=== PATIENT | male | born 1960 | race Two or more races ===

== ENCOUNTER 2020-02-25 11:04 | Emergency (ER) | payer MEDICAID ==
[~2020-02-25] VITALS: Ht 165.1 cm; Wt 66.0 kg
[2020-02-25] MEDS ORDERED: ASPIRIN 325MG EC TABLET PO ONE (13:30)
[2020-02-25 14:03] LABS: BASOPHILS % 0.6 % (0.0-2.0); HEMATOCRIT. 44.7 % (42.0-52.0); LYMPHOCYTES % 44.9 % (20.0-50.0); MEAN CORPUSCULAR HEMOGLOBIN 28.6 pg (28.0-32.0); MEAN CORPUSCULAR VOLUME 85.1 fL (80.0-94.0); MEAN PLATELET VOLUME 7.7 fl (7.4-10.4); MONOCYTES % 10.5 % (2.0-8.0); PLATELET 218 x1000/uL (130-400); RED BLOOD CELL COUNT 5.25 mill/uL (4.7-6.1); RED CELL DISTRIBUTION WIDTH 19.4 % (11.6-14.6)
[2020-02-25 14:11] VITALS: BP 148/100
[2020-02-25 14:20] LABS: CHLORIDE 108 mEq/L (98-107)
== END 2020-02-25 14:17 | disposition left against medical advice (07) ==
LOC: ER 11:04 → CANBEDREQ 14:22
DX: R07.89 Other chest pain (principal); I10 Essential (primary) hypertension; E78.00 Pure hypercholesterolemia, unspecified; F17.210 Nicotine dependence, cigarettes, uncomplicated; Z71.6 Tobacco abuse counseling
CPT/HCPCS: 36415; 71045; 80053; 83880; 84484; 85025; 93005; 99285; 99406